=== PATIENT | female | born 1960 | race African-American/Black ===

== ENCOUNTER 2016-11-24 11:58 | Emergency (ER) | payer OTHER ==
[~2016-11-24] VITALS: Ht 175.3 cm; Wt 99.8 kg
[~2016-11-24 11:58] MED LIST: htn meds
--- NOTE | 2016-11-24 12:40 | NUR ---
PT BIB SELF C/O NECK PAIN X1 WORSE, GETTING GRADUALLY WORSE, ATRAUMATIC. NAD NOTED. NO NEURO DEFICITS. AMBULATORY WITH STEADY GAIT. IN ER BED 10.
[2016-11-24] MEDS ORDERED: KETOROLAC TROMETHAMINE INJ 30 MG/ML VIAL ONE (12:53)
[2016-11-24] MEDS ORDERED: KETOROLAC TROMETHAMINE INJ 60 MG/2 ML VIAL IM ONE (13:00)
--- NOTE | 2016-11-24 14:37 | NUR ---
Patient discharged to home in stable condition. Written and verbal after care instructions given. Patient verbalizes understanding of instruction. AMBULATORY WITH STEADY GAIT.
[2016-11-24 14:39] VITALS: BP 124/78
== END 2016-11-24 14:39 | disposition home or self-care (01) ==
LOC: ER 11:59
DX: M54.12 Radiculopathy, cervical region (principal); I10 Essential (primary) hypertension; F17.200 Nicotine dependence, unspecified, uncomplicated; M19.90 Unspecified osteoarthritis, unspecified site
CPT/HCPCS: 72125-TC; A4606; J1885; Z7610

== ENCOUNTER 2017-07-04 13:56 | Emergency (ER) | payer OTHER ==
[~2017-07-04] VITALS: Ht 175.3 cm; Wt 98.0 kg
[2017-07-04 13:56] VITALS: BP 140/85
== END 2017-07-04 14:56 | disposition home or self-care (01) ==
LOC: ER 14:00
DX: M54.6 Pain in thoracic spine (principal); I10 Essential (primary) hypertension; F17.200 Nicotine dependence, unspecified, uncomplicated; D21.9 Benign neoplasm of connective and other soft tissue, unspecified
CPT/HCPCS: 99283; A4606; Z7610

== ENCOUNTER 2018-11-03 10:20 | Emergency (ER) | payer OTHER ==
[~2018-11-03] VITALS: Ht 170.2 cm; Wt 95.3 kg
--- NOTE | 2018-11-03 10:24 | NUR ---
CAME IN FOR L SHOULDER PAIN ON AND OFF X 6 MONTHS. - RECENT TRAUMA, TO ER BED 9, HOOKED TO MONITOR, PROVIDED W WARM BLANKET, AWAITING MD OCHOA.
--- NOTE | 2018-11-03 10:32 | NUR ---
BRI GUMZAN MD AT BEDSIDE
[2018-11-03 10:44] VITALS: BP 156/98
--- NOTE | 2018-11-03 10:44 | NUR ---
Patient discharged to home in stable condition. Written and verbal after care instructions given. Patient verbalizes understanding of instruction.
== END 2018-11-03 10:55 | disposition home or self-care (01) ==
LOC: ER 10:27
DX: M54.12 Radiculopathy, cervical region (principal); M25.512 Pain in left shoulder; I10 Essential (primary) hypertension; F17.200 Nicotine dependence, unspecified, uncomplicated; Z98.890 Other specified postprocedural states; Z60.2 Problems related to living alone

== ENCOUNTER 2023-05-31 07:25 | Emergency (ER) | payer MEDICARE, OTHER ==
[~2023-05-31] VITALS: Ht 172.7 cm; Wt 93.9 kg
[2023-05-31 08:15] VITALS: TEMP 98.2
[2023-05-31] MEDS ORDERED: KETOROLAC TROMETHAMINE 15 MG/ML VIAL IV ONE (08:30)
[2023-05-31] MEDS ORDERED: CYCLOBENZAPRINE 10 MG TABLET PO ONE (08:30)
[2023-05-31 08:40] LABS: APPEARANCE,URINE CLEAR (CLEAR); BILIRUBIN,URINE NEGATIVE (NEGATIVE); BLOOD, URINE NEGATIVE Ery/uL (NEGATIVE); COLOR,URINE YELLOW (YELLOW); KETONES,URINE NEGATIVE (NEGATIVE); LEUKOCYTE ESTERASE ,URINE NEGATIVE (NEGATIVE); NITRITE, URINE NEGATIVE (NEGATIVE); PH,URINE 7.5 (5.0-8.0); PROTEIN,URINE NEGATIVE (NEGATIVE); UGLUCOSE NEGATIVE (NEGATIVE); UROBILINOGEN,URINE 0.2 EU/dL (0.2)
[2023-05-31] MEDS ORDERED: KETOROLAC TROMETHAMINE 15 MG/ML VIAL ONE (08:54)
[2023-05-31] MEDS ORDERED: CYCLOBENZAPRINE 10 MG TABLET ONE (08:55)
[2023-05-31 08:56] LABS: BASOPHILS % (AUTO) 0.3 % (0.0-2.0); EOSINOPHILS % (AUTO) 0.5 % (0.0-6.0); HEMATOCRIT 47 % (33-45); HEMOGLOBIN 15.7 g/dL (11.5-14.8); LYMPHOCYTES # (AUTO) 1.5 K/uL (0.8-4.8); LYMPHOCYTES % (AUTO) 26.9 % (20.0-44.0); MEAN CORPUSCULAR HEMOGLOBIN 33 PG (26.0-33.0); MEAN CORPUSCULAR HGB CONC 34 g/dl (31.0-36.0); MEAN CORPUSCULAR VOLUME 99 fL (82-100); MONOCYTES # (AUTO) 0.4 K/uL (0.1-1.30); MONOCYTES % (AUTO) 6.3 % (2.0-12.0); NEUTROPHILS # (AUTO) 3.8 K/uL (1.8-8.9); PLATELET COUNT (AUTO) 236 K/uL (150-450); RED CELL DISTRIBUTION WIDTH 13.6 % (11.5-15.0); WHITE BLOOD COUNT (AUTO) 5.8 K/uL (4.3-11.0)
[2023-05-31] MEDS ORDERED: CIPROFLOXACIN HCL 500 MG TABLET PO ONE (09:00)
[2023-05-31] MEDS ORDERED: CIPROFLOXACIN HCL 500 MG TABLET ONE (09:00)
[2023-05-31 09:34] LABS: CALCIUM, SERUM 9.5 mg/dL (8.5-10.1); CREATININE 0.6 mg/dL (0.6-1.3); POTASSIUM 2.9 mmol/L (3.5-5.1)
[2023-05-31 09:37] LABS: BILIRUBIN,DIRECT 0.1 mg/dL (0.0-0.2); BILIRUBIN,TOTAL 0.3 mg/dL (0.2-1.0); TOTAL PROTEIN, SERUM 8.5 g/dL (6.4-8.2)
[2023-05-31] MEDS ORDERED: POTASSIUM CHLORIDE 20 MEQ TAB.PRT.SR PO ONE ×2 (10:00→10:04)
[2023-05-31] MEDS ORDERED: CIPR-262 PO (10:03)
[2023-05-31 10:21] VITALS: BP 137/80; O2SAT 98
== END 2023-05-31 10:22 | disposition home or self-care (01) ==
LOC: ER 08:01
DX: N39.0 Urinary tract infection, site not specified (principal); I10 Essential (primary) hypertension; Z60.2 Problems related to living alone
CPT/HCPCS: 99285; 74176; 96374; 85025; 80048; 87086; 83690; 80076; 81003; 36415; J1885

== ENCOUNTER 2023-06-08 13:34 | Emergency (ER) | payer MEDICARE, OTHER ==
[~2023-06-08] VITALS: Ht 172.7 cm; Wt 93.0 kg
[~2023-06-08 13:34] MED LIST changes: +CIPR-262 PO
[2023-06-08] MEDS: IV NS 0.9% 500 ML BAG IV ONE (14:44)
[2023-06-08 14:49] LABS: BASOPHILS % (AUTO) 0.5 % (0.0-2.0); EOSINOPHILS # (AUTO) 0.1 K/uL (0.0-0.7); HEMATOCRIT 45 % (33-45); HEMOGLOBIN 15.8 g/dL (11.5-14.8); LYMPHOCYTES % (AUTO) 35.9 % (20.0-44.0); MEAN CORPUSCULAR HEMOGLOBIN 34 PG (26.0-33.0); MEAN CORPUSCULAR HGB CONC 35 g/dl (31.0-36.0); MEAN CORPUSCULAR VOLUME 98 fL (82-100); MONOCYTES # (AUTO) 0.7 K/uL (0.1-1.30); MONOCYTES % (AUTO) 12.1 % (2.0-12.0); NEUTROPHILS # (AUTO) 2.8 K/uL (1.8-8.9); NEUTROPHILS % (AUTO) 50.5 % (43.0-81.0); PLATELET COUNT (AUTO) 265 K/uL (150-450); RED BLOOD CELL COUNT(AUTO) 4.65 MIL/uL (4.0-5.2); RED CELL DISTRIBUTION WIDTH 13.1 % (11.5-15.0); WHITE BLOOD COUNT (AUTO) 5.6 K/uL (4.3-11.0)
[2023-06-08 14:56] LABS: CALCIUM, SERUM 9.5 mg/dL (8.5-10.1); CARBON DIOXIDE 28 mmol/L (21-32); CHLORIDE 93 mmol/L (98-107); CREATININE 0.9 mg/dL (0.6-1.3); GLUCOSE 144 mg/dL (74-106); SODIUM SERUM 130 mmol/L (136-145); UREA NITROGEN, BLOOD 13 mg/dL (7-18)
[2023-06-08 15:04] LABS: ALANINE AMINOTRANSFERASE 31 U/L (12-78); ALKALINE PHOSPHATASE 97 U/L (46-116); ASPARTATE AMINOTRANSFERASE 16 U/L (15-37); BILIRUBIN,DIRECT 0.1 mg/dL (0.0-0.2); BILIRUBIN,TOTAL 0.6 mg/dL (0.2-1.0); LIPASE 23 U/L (16-77); TOTAL PROTEIN, SERUM 8.5 g/dL (6.4-8.2)
[2023-06-08] MEDS ORDERED: HYDR25TA4 PO (15:09)
[2023-06-08] MEDS ORDERED: AMLO10TA4 PO (15:09)
[2023-06-08] MEDS ORDERED: RISP0.5T5 PO (15:09)
[2023-06-08 15:26] LABS: INR 0.98 (0.91-1.10); PARTIAL THROMBOPLASTIN TIME 28.6 SEC (24.3-34.3); PROTHROMBIN TIME 10.4 SECS (9.2-11.1)
[2023-06-08] MEDS ORDERED: KETOROLAC TROMETHAMINE 15 MG/ML VIAL ONE (15:54)
[2023-06-08] MEDS: KETOROLAC TROMETHAMINE 15 MG/ML VIAL IV ONE (16:00)
[2023-06-08 16:56] LABS: APPEARANCE,URINE SLIGHTLY CLOUDY (CLEAR); BILIRUBIN,URINE NEGATIVE (NEGATIVE); BLOOD, URINE NEGATIVE Ery/uL (NEGATIVE); COLOR,URINE YELLOW (YELLOW); KETONES,URINE NEGATIVE (NEGATIVE); LEUKOCYTE ESTERASE ,URINE NEGATIVE (NEGATIVE); NITRITE, URINE NEGATIVE (NEGATIVE); PH,URINE 5.5 (5.0-8.0); PROTEIN,URINE TRACE mg/dl (NEGATIVE); UGLUCOSE NEGATIVE (NEGATIVE); UROBILINOGEN,URINE 0.2 EU/dL (0.2)
[2023-06-08 17:11] LABS: ADD URINE CULTURE NO; BACTERIA,URINE RARE /HPF (None Seen); MUCUS,URINE Few /LPF (None Seen); RBC,URINE 0-2 /HPF (0-2); WBC,URINE 0-2 /HPF (0-3)
[2023-06-08] MEDS ORDERED: IBUP-1955 PO (18:14)
[2023-06-08] MEDS ORDERED: CYCL5TAB PO (18:14)
[2023-06-08 18:25] VITALS: BP 149/96; TEMP 98.9; O2SAT 100
== END 2023-06-08 18:29 | disposition home or self-care (01) ==
LOC: ER 13:37
DX: S39.012A Strain of muscle, fascia and tendon of lower back, initial encounter (principal); G89.29 Other chronic pain; I10 Essential (primary) hypertension; Z60.2 Problems related to living alone; X58.XXXA Exposure to other specified factors, initial encounter; Y93.89 Activity, other specified; Y92.89 Other specified places as the place of occurrence of the external cause; Y99.8 Other external cause status
CPT/HCPCS: 99285; 74176; 96374; 93005; 85025; 80048; 87086; 83690; 80076; 81001; 36415; 84484; 85730; J7040 ×2; J1885

== ENCOUNTER 2023-11-30 10:14 | Emergency (ER) | payer MEDICARE, OTHER ==
[~2023-11-30] VITALS: Ht 170.2 cm; Wt 77.1 kg
[~2023-11-30 10:14] MED LIST changes: +AMLO10TA4 PO; -CIPR-262 PO; +CYCL5TAB PO; +HYDR25TA4 PO; +IBUP-1955 PO; +RISP0.5T5 PO; -htn meds
[2023-11-30] MEDS ORDERED: KETOROLAC TROMETHAMINE 15 MG/ML VIAL ONE (11:04)
[2023-11-30] MEDS: KETOROLAC TROMETHAMINE 15 MG/ML VIAL IM ONE (11:05)
[2023-11-30] MEDS ORDERED: DICL100G26 TP (12:22)
[2023-11-30] MEDS ORDERED: METH-649 PO (12:22)
[2023-11-30 12:31] VITALS: BP 132/71; TEMP 98.7; O2SAT 100
== END 2023-11-30 12:31 | disposition home or self-care (01) ==
LOC: ER 10:14
DX: G89.29 Other chronic pain (principal); M54.50 Low back pain, unspecified; M79.605 Pain in left leg; I10 Essential (primary) hypertension; F17.200 Nicotine dependence, unspecified, uncomplicated; Z60.2 Problems related to living alone; Z87.42 Personal history of other diseases of the female genital tract
CPT/HCPCS: 99283; 96372; J1885